=== PATIENT | female | born 1965 | race Caucasian/White ===

== ENCOUNTER 2020-10-06 10:44 | Emergency (ER) | payer OTHER ==
[~2020-10-06] VITALS: Ht 162.6 cm; Wt 97.5 kg
[2020-10-06] MEDS ORDERED: PATIENTS OWN MEDICATION IV SCH (12:30)
[2020-10-06] MEDS ORDERED: BAMLANIVIMAB IV ONE (13:00)
[2020-10-06 15:35] VITALS: BP 120/81
== END 2020-10-06 15:55 | disposition home or self-care (01) ==
LOC: ER 10:44
DX: U07.1 COVID-19 (principal); J18.9 Pneumonia, unspecified organism
CPT/HCPCS: 71045; 99285; M0239; Q0239; 96365